=== PATIENT | female | born 2000 | race Caucasian/White ===

== ENCOUNTER 2025-04-25 08:58 | Emergency (ER) | payer MEDICAID ==
[~2025-04-25] VITALS: Ht 172.7 cm; Wt 96.0 kg
[2025-04-25 09:06] VITALS: BP 151/90; PULSE 98; RESP 18; TEMP 97.8; O2SAT 98
[2025-04-25] MEDS: proparacaine 0.5% ophthalmic drops 15ml EACHEYE ONE (10:09)
[2025-04-25] MEDS: fluorescein sod 1mg ophthalmic strip EACHEYE ONE (10:10)
--- NOTE | 2025-04-25 10:12 | Physician Documentation ---
History of Present Illness ~ Chief Complaint: Eye Pain Stated Complaint: L EYE PAIN Time Seen by MD: 09:16 OK to notify your PCP?: Yes HPI She reports that yesterday she was getting a box off of her Fridge and a piece of paper fell off and hit her in the left eye. She has been having pain with this eye ever since. She denies any vision changes. She has not taken any medication for the pain. No drainage from the left eye other than excess tearing. Denies any fever Medication Reconciliation Allergies: Coded Allergies: No Known Allergies (Unverified , 04/25/25) Scheduled Ciprofloxacin Hcl Ophth* (Ciloxan 0.35 Ophth Drops*), 1 DROP LEFTEYE Q6H Review of Systems All Other Systems at this time: Reviewed and Negative Physical Exam Vital Signs: RN Vital Signs have been reviewed: Yes, Temperature: 97.8, Source: Temporal, Heart Rate: 98, Respiratory Rate: 18, BP: 151/90, Pulse Oximetry: 98, Weight: 96.000 Oxygen Flow Rate: 0 Pulse Oximetry Reflects: adequate oxygenation Physical Exam General: Alert, no distress. HEENT: moist mucous membranes. PERRLA, EOMI, fluorescein uptake in the 7:00 a.m. position of the sclera in the left eye. Sclera injection of left eye, no subconjunctival hemorrhage. Neck: Full range of motion. Respiratory: No respiratory distress, equal chest rise and fall. Chest: No accessory muscle use. Cardiovascular: Regular rate and rhythm. Gastrointestinal: Nondistended. Extremities: Normal range of motion, no deformity. Neurologic: Oriented x4. Psychiatric: Normal mood and affect. Skin: Normal color, warm and dry. Visual Acuity : Eye Location: Left Vision Acuity Degree: 20/40 Correction: Uncorrected Progress Results/Orders Reviewed/noted all lab results: Yes Results/Orders Completed Orders - KIRA MESA TEACHING PASTOR Proparacaine Ophth Solution (Alcaine Oph (04/25/25 09:30) Fluorescein 1mg Ophthal Strip (Ful-Kayla O (04/25/25 09:30) Ciprofloxacin Ophth Drops (Ciloxan 0.3% (04/25/25 10:10) Medications Received in ER Medications (Trade) Dose Ordered Sig/Nitin Route PRN Reason Start Time Stop Time Status Last Admin Dose Admin (Alcaine ophth solution) 2 drop ONCE ONCE EACHEYE 04/25/25 09:30 04/25/25 09:31 DC 04/25/25 10:09 2 DROP (Ful-Kayla ophth strip) 1 mg ONCE ONCE EACHEYE 04/25/25 09:30 04/25/25 09:31 DC 04/25/25 10:10 1 MG Vital Signs 04/25/25 09:06 Temp 97.8 Pulse 98 Resp 18 B/P (MAP) 151/90 Pulse Ox 98 O2 Flow Rate 0 Medical Decision Making Additional information obtaine: old records Findings Physical exam reveals fluorescein uptake in the left eye indicating corneal a brasion. There is no sign of duration at the site. She has no pain with eye movement. Pain relieved with proparacaine. Prescribed ciprofloxacin drops 1st dose given here rest sent to the pharmacy. Ear Diff. Dx: Considerations: Include: Other Eye Diff. Dx: Considerations: Include: Conjuctivitis-bacterial, Conjuctivitis- viral, Corneal laceration, Corneal ulceration, Foreign body-conjuctiva, Foreign body-corneal, Foreign body-lid, Iritis, Periobital cellulitis, Rust ring, Subconjunctival hem Nose Diff. Dx: Considerations: Include: Other Tooth Diff. Dx: Considerations: Include: Other Throat Diff Dx: Considerations: Include: Other Departure Disposition: 01 HOME / SELF CARE / HOMELESS Impression: Primary Impression: Corneal abrasion Condition: Stable Discharge Instructions: Corneal Abrasion Additional Instructions: Return back here for any new or worsening symptoms. Follow up with her primary care provider or eye doctor in the next week. Referrals: NO PRIMARY CARE PROVIDER (PCP) Prescriptions Ciprofloxacin Hcl Ophth* (Ciloxan 0.35 Ophth Drops*) 2.5 Ml Bottle 1 DROP LEFTEYE Q6H for 7 Days, #5 ML Prov: KIRA MESA 04/25/25 Education Educated: Patient Educated regarding: diagnosis, treatment, prognosis, need for follow up Additional Comment Medical Screen Exam This patient recieved a medical screening examination. After reviewing the individual's medical complaints with presenting symptoms and performing an appropriate physical examination, it was determined that no immediate life-threatening emergency medical condition is present. This individual is also not a women having contractions. Signature Scribe Signature: . Attestation: Scribed for [facility] Dis[employer] by Kira Vann NP . 04/25/25 10:15 Parts of this note were created using [employer] voice recognition software program. While efforts were made to correct any mistakes made by this voice recognition software program, nonsensical phrases may remain in this note. In addition, there may be errors and syntax, grammar, content and spelling. KIRA MESA TEACHING PASTOR Apr 25, 2025 10:12
[2025-04-25] MEDS ORDERED: CIPR2.5D21 LEFTEYE (10:13)
[2025-04-25] MEDS: ciprofloxacin 0.3% 2.5ml ophthalmic solution LEFTEYE ONE (10:18)
== END 2025-04-25 10:19 | disposition home or self-care (01) ==
LOC: ER 09:00
DX: S05.02XA Injury of conjunctiva and corneal abrasion without foreign body, left eye, initial encounter (principal); X58.XXXA Exposure to other specified factors, initial encounter; Y93.89 Activity, other specified; Y92.89 Other specified places as the place of occurrence of the external cause; Y99.8 Other external cause status
CPT/HCPCS: 99283; J3490